=== PATIENT | female | born 2000 | race Hispanic/Latino ===

== ENCOUNTER 2021-12-22 15:47 | Observation (INO) | payer MEDICAID ==
[~2021-12-22] VITALS: Ht 162.6 cm; Wt 82.6 kg
[2021-12-22 15:51] VITALS: BP 132/104
== END 2021-12-22 17:05 | disposition home or self-care (01) ==
LOC: EDH 15:47 → LDH 15:48
PROVIDERS: ADMIT Internal Medicine; ATTEND Internal Medicine
DX: O62.9 Abnormality of forces of labor, unspecified (principal); O26.893 Other specified pregnancy related conditions, third trimester; R10.9 Unspecified abdominal pain; Z3A.35 35 weeks gestation of pregnancy
CPT/HCPCS: 59025; G0378